=== PATIENT | female | born 1950 | race Caucasian/White ===

== ENCOUNTER 2023-03-25 12:38 | Outpatient (CLI) | payer MEDICARE, BC, SELFPAY ==
--- NOTE | 2023-03-25 13:00 | MR_ITS ---
[address] [address] Phone:?[phone] Fax:?[phone] Referring Physician Information: Jarad Benítez M.D. [id number] [address] Phone:?[phone] Fax:?[phone] Patient:Gabe Schrader D.O.B:?1950 Sex:?Female Phone:? [facility] MRN:?[id number] Exam Date:?03/25/2023 EXAM: MRI of the LEFT KNEE, without contrast CLINICAL: Left knee pain. Evaluate for medial meniscal tear. COMPARISONS: None available. TECHNICAL: Multiplanar multisequence MRI of the left knee was obtained. SEDATION: None. CONTRAST: None. FINDINGS: Ligaments: ACL: Intact and unremarkable. PCL: Intact and unremarkable. MCL: Intact and unremarkable. LCL: Intact and unremarkable. Posterolateral corner: Popliteus, biceps femoris, iliotibial band, and the popliteofibular ligament appear intact. Posteromedial corner: Semimembranosus, pes anserine tendons and posterior oblique ligament appear intact. Extensor mechanism: Patellar tendon: Intact, without tendinopathy. Quadriceps tendon: Intact, without tendinopathy. Retinacula: Medial and lateral retinacula are intact. Fat pads: Unremarkable infrapatellar Hoffa's, quadriceps and prefemoral fat pads. Patellofemoral joint: Patella: There is full-thickness chondral loss involving the medial patellar facet on axial series 4 images 7-9. Grade 2-3 chondral thinning involving the remainder of the medial patellar facet. Grade 2-3 chondral thinning and deep chondral delamination involves the patellar median ridge. There is focal deep chondral fissure involving the junction of the patellar median ridge and lateral facet on axial series 4 image 10. Trochlea: Full thickness chondral loss involving the inferior trochlea on sagittal series 6 images 15-18. Medial compartment: Medial meniscus: Complex tearing involving the posterior horn and posterior root with tearing extending into the posterior body segment on sagittal series 6 images 8-15 and coronal series 7 images 18-22. There is mild superior displacement of torn meniscal tissue at the junction of the posterior horn and posterior root. Approximately 4 mm of medial extrusion of the peripheral body segment medial meniscus into the medial gutter. Medial cartilage: Small 2 mm segment of high-grade chondral loss involving the weightbearing medial femoral condyle on coronal series 8 image 16. Deep chondral fissuring/small segment of high-grade chondral loss involving the posterior nonweightbearing medial femoral condyle on axial series 4 image 13-16. There is chondral heterogeneity and mild chondral thinning involving the medial tibial plateau. Lateral compartment: Lateral meniscus: There is complex tearing throughout the entire lateral meniscus. Lateral cartilage: Grade 3-4 chondral loss involves the posterior lateral tibial plateau with adjacent subchondral reactive edema. Grade 3 chondral loss also involves the lateral tibial plateau on coronal series 8 images 16-17. There is deep chondral fissuring involving the superior posterior nonweightbearing lateral femoral condyle on sagittal series 6 image 20. Knee joint: Effusion: Small left knee effusion. Intra-articular bodies:?Small intra-articular body is present within the anterior joint recess along the periphery of the anterior root lateral meniscus measuring 4 mm in size on axial series 4 image 19. Popliteal cyst: Small. Bones: Curvilinear fracture line seen to involve the subchondral medial tibial plateau extending into the central interspinous region of the proximal tibia on coronal series 7 image 16-19 and sagittal series 5 image 10-16 with adjacent bone marrow edema. Subchondral reactive marrow edema/cystic change involves the posterior lateral tibial plateau. 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 IMPRESSION: 1. Tearing of the medial and lateral menisci as above, with extrusion of the peripheral body segment medial meniscus into the medial gutter and with mild superior displacement of torn meniscal tissue along the junction of the posterior horn and posterior root medial meniscus. 2. Fracture involving the subchondral medial tibial plateau extending into the central interspinous region of the proximal tibia with adjacent bone marrow edema. 3. Tricompartmental chondral loss as above. 4. Small joint effusion and small popliteal cyst. Small 4 mm intra-articular body within the anterior joint recess along the periphery of the anterior root lateral meniscus. JCZ Electronically signed on 03/25/2023 3:34:00 PM by Natalio Turk D.O.
== END 2023-03-25 12:39 | disposition home or self-care (01) ==
PROVIDERS: PCP Physician Assistant; Visit Provider Orthopaedic Surgery
DX: M25.562 Pain in left knee (principal); S83.242A Other tear of medial meniscus, current injury, left knee, initial encounter; S83.282A Other tear of lateral meniscus, current injury, left knee, initial encounter; S82.142A Displaced bicondylar fracture of left tibia, initial encounter for closed fracture; M25.462 Effusion, left knee; M71.22 Synovial cyst of popliteal space [Baker], left knee
CPT/HCPCS: 73721